=== PATIENT | male | born 1950 | race Caucasian/White ===

== ENCOUNTER → 2018-09-05 | Outpatient (CLI) | payer MEDICARE, OTHER ==
--- NOTE | 2018-09-05 17:25 | MR ---
EXAMINATION TYPE: MR brain and iac wo/w con DATE OF EXAM: 09/05/2018 10:31 AM COMPARISON: NONE HISTORY: Hearing loss TECHNIQUE: Multiplanar and multispin-echo imaging of the brain was performed both before and after the administr ation of contrast. High-resolution images are obtained of the internal auditory canals performed uti lizing 8.5 mL intravenous Gadavist contrast. The ventricles, basal cisterns and sulci overlying the cerebral convexities are mildly enlarged not u nusual for the patient's age group. There is no evidence for midline shift or mass effect. Acute intracranial hemorrhage or extra-axial collection is not evident. There is mild periventricular white matter ischemic demyelination. Small area of remote insult right temporal lobe. High-resolution imaging of the internal auditory canals fails demonstrate evidence for an enhancing a coustic schwannoma or cerebellopontine cistern angle mass. Following contrast administration, there is no evidence for pathologic enhancement or enhancing mass. The paranasal sinuses and mastoid air cells are well-aerated. IMPRESSION: 1. No evidence of acoustic schwannoma or cerebellopontine angle mass.
== END | disposition home or self-care (01) ==
LOC: RADMRIMAIN 08:43
PROVIDERS: ATTEND Otolaryngology
DX: H91.91 Unspecified hearing loss, right ear (principal); H93.3X1 Disorders of right acoustic nerve; Z98.890 Other specified postprocedural states
CPT/HCPCS: 82565; 70553; 36415; A9585

== ENCOUNTER 2018-09-12 15:30 | Emergency (ER) | payer MEDICARE, OTHER ==
[2018-09-12 17:00] LABS: Basophils % (A) 0 %; Eosinophils # (A) 0.1 k/uL (0-0.7); Eosinophils % (A) 1 %; HCT 46.2 % (39.0-53.0); HGB 15.8 gm/dL (13.0-17.5); Lymphocytes # (A) 1.1 k/uL (1.0-4.8); Lymphocytes % (A) 10 %; MCHC 34.3 g/dL (31.0-37.0); MCV 84.5 fL (80.0-100.0); Mean Platelet Volume 7.3; Monocytes # (A) 0.6 k/uL (0-1.0); Monocytes % (A) 6 %; Neutrophils # (A) 8.7 k/uL (1.3-7.7); Neutrophils % (A) 81 %; Platelet Count 200 k/uL (150-450); RBC 5.46 m/uL (4.30-5.90); RDW 14.2 % (11.5-15.5); WBC 10.7 k/uL (3.8-10.6)
[2018-09-12 17:09] LABS: Albumin 4.5 g/dL (3.5-5.0); Calcium 9.9 mg/dL (8.4-10.2); Potassium 4.7 mmol/L (3.5-5.1); Total Bilirubin 0.6 mg/dL (0.2-1.3); Total Protein 7.7 g/dL (6.3-8.2)
[2018-09-12 17:18] LABS: Appearance,Urine Clear (Clear); Bilirubin,Urine Negative (Negative); Blood,Urine Trace (Negative); Color,Urine Yellow; Glucose,Urine (UA) Negative (Negative); Ketones,Urine Negative (Negative); Leukocyte Esterase,Urine Negative (Negative); Mucus,Urine Rare /hpf; Nitrite,Urine Negative (Negative); PH, Urine 5.5 (5.0-8.0); Protein,Urine Negative (Negative); RBC,Urine 3 /hpf (0-5); Specific Gravity,Urine 1.015 (1.001-1.035); Urobilinogen,Urine <2.0 mg/dL (<2.0); WBC,Urine 1 /hpf (0-5)
--- NOTE | 2018-09-12 20:37 | CT ---
EXAMINATION TYPE: CT abdomen pelvis wo con DATE OF EXAM: 09/12/2018 COMPARISON: None HISTORY: 68-year-old male Right side flank pain. CT DLP: 591.7 mGycm. Automated exposure control for dose reduction was used. TECHNIQUE: Contiguous axial scanning of the abdomen and pelvis without IV contrast. Coronal and sagit devin reconstructions performed. FINDINGS: Ascending aorta ectatic and 3.9 cm. Heart upper limits of normal in size with pericardial effusion. S trandy atelectasis lower lungs without pleural effusion. Small hiatal hernia. Liver mildly enlarged at 18.2 cm with low-attenuation suggesting fatty infiltration. This is a noncon trast exam limiting assessment of the solid abdominal viscera. Gallbladder, adrenal glands, spleen, and pancreas within normal limits. Nonobstructive 4 mm right renal calculus. There is right-sided perinephric fat stranding and mild rig ht-sided pelvocaliectasis and mild right-sided ureteric dilatation. 4 mm calculus at the right UVJ. Punctate 3 and 2 mm calculi in the left kidney. No dilated small bowel, free fluid, or free air. Sigmoid diverticulosis. Scattered mild/moderate stool. No pericolonic inflammatory change. No mesenteric or retroperitoneal lymphadenopathy seen. Bladder urine distended. Pelvic phleboliths. Prostate gland is enlarged at 5.1 cm wide. No abnormal f luid collection in the pelvis or pelvic lymphadenopathy. Bones: Mild degenerative changes at the hips. Bilateral L5 pars defects with grade 2, nearly grade 3 anterolisthesis at L5-S1. This appears to be a fixed anterolisthesis now given interbody ankylosis at L5-S1. Moderate degenerative disc disease at additional levels mid to lower lumbar spine. IMPRESSION: 1. A 4 mm calculus at the right UVJ with mild obstructive uropathy. The degree of perinephric fat st randing is somewhat out of proportion to the obstruction. While this still may be reactive, correlate to exclude underlying infection. 2. Additional nonobstructive renal calculi measuring up to 4 mm on both sides. 3. Mild hepatomegaly (18.2 cm) with hepatic steatosis. 4. Small hiatal hernia, sigmoid diverticulosis, and prostatomegaly (5.1 cm wide). 5. Bilateral L5 pars defects with grade 2, nearly grade 3 fixed anterolisthesis secondary to degener ative interbody ankylosis.
--- NOTE | 2018-09-12 20:55 | ED ---
Abdominal Pain HPI - General Chief Complaint: Abdominal Pain Stated Complaint: kidney pain/vomiting Time Seen by Provider: 09/12/18 19:27 Source: patient, RN notes reviewed Mode of arrival: ambulatory Limitations: no limitations - History of Present Illness Initial Comments: 68-year-old male presents emergency from for right flank pain. Patient states that it felt like his prior kidney stones. Patient states he has not had one in 50 years. Patient states that he's had nausea and vomiting no diarrhea no constipation slight darker urine than usual no blood noted. No fevers no chills no chest pain or shortness of breath. - Related Data Home Medications Medication Instructions Recorded Confirmed Allopurinol [Zyloprim] 300 mg PO DIRECTED 11/14/15 11/19/15 Ezetimibe [Zetia] 10 mg PO HS 11/14/15 11/19/15 Fexofenadine HCl [Sallie Allergy] 180 mg PO HS 11/14/15 11/19/15 Lisinopril [Zestril] 5 mg PO HS 11/14/15 11/19/15 Meloxicam 15 mg PO DAILY 11/14/15 11/19/15 Montelukast [Singulair] 10 mg PO HS 11/14/15 11/19/15 Previous Rx's Medication Instructions Recorded Amoxicillin/Potassium Clav 1 each PO Q12HR #20 tab 11/19/15 [Augmentin 875-125 Tablet] Hydrocodone/Acetaminophen [[place] 1 - 2 each PO Q6HR PRN #40 tab 11/19/15 5-325] Hydrocodone/Acetaminophen [[place] 1 tab PO Q6HR PRN #12 tab 09/12/18 5-325] Ondansetron Odt [Zofran Odt] 4 mg PO Q8HR PRN #10 tab 09/12/18 Allergies Allergy/AdvReac Type Severity Reaction Status Date / Time No Known Allergies Allergy Verified 09/12/18 15:40 Review of Systems ROS Statement: Those systems with pertinent positive or pertinent negative responses have been documented in the HPI. ROS Other: All systems not noted in ROS Statement are negative. Past Medical History Past Medical History: Hypertension, Skin Disorder Additional Past Medical History / Comment(s): arthritis, goutt, seasonal allergies, skin cancer History of Any Multi-Drug Resistant Organisms: None Reported Past Surgical History: Ear Surgery, Joint Replacement Additional Past Surgical History / Comment(s): left knee. skin cancer removed from bottom lipx3. benign growth removed from nerve behind right ear Past Anesthesia/Blood Transfusion Reactions: No Reported Reaction Past Psychological History: No Psychological Hx Reported Smoking Status: Never smoker Past Alcohol Use History: None Reported Past Drug Use History: None Reported - Past Family History Mother Family Medical History: CVA/TIA General Exam Limitations: no limitations General appearance: alert, in no apparent distress Respiratory exam: Present: normal lung sounds bilaterally. Absent: respiratory distress, wheezes, rales, rhonchi, stridor Cardiovascular Exam: Present: regular rate, normal rhythm, normal heart sounds. Absent: systolic murmur, diastolic murmur, rubs, gallop, clicks GI/Abdominal exam: Present: soft, normal bowel sounds. Absent: distended, tenderness, guarding, rebound, rigid Back exam: Present: CVA tenderness (R). Absent: CVA tenderness (L) Course Vital Signs 09/12/18 15:38 Temperature 98.5 F Pulse Rate 104 H Respiratory 20 Rate Blood Pressure 149/90 O2 Sat by Pulse 96 Oximetry Medical Decision Making - Medical Decision Making Labs, CT were obtained which shows evidence of right UVJ stone 4 mm. Patient does have mild elevation of renal function whether it's related to he hydration or prior contrast one week ago. Patient will have recheck in 48 hours of his creatinine with his PCP and urology. Patient will be given pain medication. Patient was in a give Flomax but states he's had reaction the past. He'll be discharged with antiemetics and pain medication. - Lab Data Result diagrams: 09/12/18 16:49 09/12/18 16:49 Lab Results 09/12/18 09/12/18 09/12/18 Range/Units 16:49 16:49 17:01 WBC 10.7 H (3.8-10.6) k/uL RBC 5.46 (4.30-5.90) m/uL Hgb 15.8 (13.0-17.5) gm/dL Hct 46.2 (39.0-53.0) % MCV 84.5 (80.0-100.0) fL MCH 29.0 (25.0-35.0) pg MCHC 34.3 (31.0-37.0) g/dL RDW 14.2 (11.5-15.5) % Plt Count 200 (150-450) k/uL Neutrophils % 81 % Lymphocytes % 10 % Monocytes % 6 % Eosinophils % 1 % Basophils % 0 % Neutrophils # 8.7 H (1.3-7.7) k/uL Lymphocytes # 1.1 (1.0-4.8) k/uL Monocytes # 0.6 (0-1.0) k/uL Eosinophils # 0.1 (0-0.7) k/uL Basophils # 0.0 (0-0.2) k/uL Sodium 141 (137-145) mmol/L Potassium 4.7 (3.5-5.1) mmol/L Chloride 106 (98-107) mmol/L Carbon Dioxide 25 (22-30) mmol/L Anion Gap 10 mmol/L BUN 17 (9-20) mg/dL Creatinine 1.66 H (0.66-1.25) mg/dL Est GFR (CKD-EPI)AfAm 48 (>60 ml/min/1.73 sqM) Est GFR (CKD-EPI)NonAf 41 (>60 ml/min/1.73 sqM) Glucose 102 H (74-99) mg/dL Calcium 9.9 (8.4-10.2) mg/dL Total Bilirubin 0.6 (0.2-1.3) mg/dL AST 31 (17-59) U/L ALT 33 (21-72) U/L Alkaline Phosphatase 92 (38-126) U/L Total Protein 7.7 (6.3-8.2) g/dL Albumin 4.5 (3.5-5.0) g/dL Urine Color Yellow Urine Appearance Clear (Clear) Urine pH 5.5 (5.0-8.0) Ur Specific [place] 1.015 (1.001-1.035) Urine Protein Negative (Negative) Urine Glucose (UA) Negative (Negative) Urine Ketones Negative (Negative) Urine Blood Trace H (Negative) Urine Nitrite Negative (Negative) Urine Bilirubin Negative (Negative) Urine Urobilinogen <2.0 (<2.0) mg/dL Ur Leukocyte Esterase Negative (Negative) Urine RBC 3 (0-5) /hpf Urine WBC 1 (0-5) /hpf Urine Mucus Rare H (None) /hpf Disposition Clinical Impression: Ureteral calculi Disposition: HOME SELF-CARE Condition: Stable Instructions: Kidney Stones (ED) Additional Instructions: Please return to the Emergency Department if symptoms worsen or any other concerns. Have a kidney function rechecked. Prescriptions: Hydrocodone/Acetaminophen [[place] 5-325] 1 tab PO Q6HR PRN #12 tab PRN Reason: Pain Ondansetron Odt [Zofran Odt] 4 mg PO Q8HR PRN #10 tab PRN Reason: Nausea Is patient prescribed a controlled substance at d/c from ED?: Yes Referrals: Leroy Harvey MD [Primary Care Provider] - 1-2 days Darren Lieberman MD [STAFF PHYSICIAN] - 1-2 days Time of Disposition: 20:54
[2018-09-12] MEDS ORDERED: ACET/COD 300 MG/30 MG STARTER PACK 6 TAB BTL PO STA (20:58)
[2018-09-12] MEDS ORDERED: ONDANSETRON 4 MG ODT STARTER PACK 2 TAB BTL PO STA (20:58)
[2018-09-12 21:18] VITALS: BP 147/87; PULSE 91; RESP 16; TEMP 98.7
== END 2018-09-12 21:17 | disposition home or self-care (01) ==
LOC: EC 15:30
DX: N20.1 Calculus of ureter (principal); I10 Essential (primary) hypertension; M19.90 Unspecified osteoarthritis, unspecified site; M10.9 Gout, unspecified; Z85.828 Personal history of other malignant neoplasm of skin; Z96.89 Presence of other specified functional implants; Z79.1 Long term (current) use of non-steroidal anti-inflammatories (NSAID); Z79.899 Other long term (current) drug therapy; Z87.442 Personal history of urinary calculi
CPT/HCPCS: 36415; 80053; 85025; 81001; 74176; 99284; S0119